=== PATIENT | male | born 1955 | race Caucasian/White ===

== ENCOUNTER 2022-06-23 10:21 | Emergency (ER) | payer SELFPAY ==
[~2022-06-23] VITALS: Ht 190.5 cm; Wt 83.9 kg
--- NOTE | 2022-06-23 10:47 | NUR ---
BIBS W/ C/O FACIAL PAIN/BRUISE/SWELLING/ABASIONS, S/P [facility] YESTERDAY, "DRANK A BIT", PER PT. TO ER BED 4.
--- NOTE | 2022-06-23 11:19 | NUR ---
PT TAKEN TO RADIOLOGY FOR CT
[2022-06-23] MEDS ORDERED: IBUP-1957 PO (12:07)
[2022-06-23 12:41] VITALS: BP 128/88
--- NOTE | 2022-06-23 12:41 | NUR ---
Patient discharged to home in stable condition. Written and verbal after care instructions given. Patient verbalizes understanding of instruction.
== END 2022-06-23 13:09 | disposition home or self-care (01) ==
LOC: ER 10:30
DX: S02.2XXA Fracture of nasal bones, initial encounter for closed fracture (principal); S00.83XA Contusion of other part of head, initial encounter; S00.33XA Contusion of nose, initial encounter; Z60.2 Problems related to living alone; Z79.1 Long term (current) use of non-steroidal anti-inflammatories (NSAID); W18.30XA Fall on same level, unspecified, initial encounter; Y93.89 Activity, other specified; Y92.89 Other specified places as the place of occurrence of the external cause; Y99.8 Other external cause status
CPT/HCPCS: 70450-TC; 70486-TC; 72125-TC